=== PATIENT | female | born 1950 | race Native Hawaiian/Other Pacific Islander ===

== ENCOUNTER 2016-11-16 11:02 | Outpatient (CLI) | payer BC | END 2016-11-16 19:08 | disposition home or self-care (01) | LOC: RAD 11:02 | DX: M25.512 Pain in left shoulder (principal); M25.511 Pain in right shoulder ==

== ENCOUNTER 2017-02-07 13:13 | Outpatient (CLI) | payer BC | END 2017-02-07 19:28 | disposition home or self-care (01) | LOC: MAMMO 13:13 | DX: Z12.31 Encounter for screening mammogram for malignant neoplasm of breast (principal) | CPT/HCPCS: G0202-TC ==

== ENCOUNTER 2017-03-08 07:42 | Day surgery (SDC) | payer BC ==
[2017-03-08 08:26] LABS: PLATELET COUNT 325 K/uL (152-353)
[2017-03-08 10:55] LABS: POTASSIUM 3.4 mmol/L (3.6-5.2); SODIUM 141 mmol/L (136-145)
== END 2017-03-08 10:45 | disposition home or self-care (01) ==
LOC: OR 07:42
PROVIDERS: Student in an Organized Health Care Education/Training Program
PROC: 0DBK8ZZ Excision of Ascending Colon, Via Natural or Artificial Opening Endoscopic (ICD-10-PCS; principal; 2017-03-08)
DX: K63.5 Polyp of colon (principal); K57.30 Diverticulosis of large intestine without perforation or abscess without bleeding; Z12.11 Encounter for screening for malignant neoplasm of colon
CPT/HCPCS: 80053; 85027; 85610; 85730; J2001; J2250; J2704; J3010; J3490

== ENCOUNTER 2018-04-06 14:04 | Outpatient (CLI) | payer OTHER | END 2018-04-06 22:11 | disposition home or self-care (01) | LOC: MAMMO 14:04 | DX: Z12.31 Encounter for screening mammogram for malignant neoplasm of breast (principal) ==

== ENCOUNTER 2019-12-26 14:41 | Outpatient (CLI) | payer OTHER | END 2019-12-26 19:19 | disposition home or self-care (01) | LOC: MAMMO 14:41 | DX: Z12.31 Encounter for screening mammogram for malignant neoplasm of breast (principal); Z13.820 Encounter for screening for osteoporosis; N95.8 Other specified menopausal and perimenopausal disorders ==

== ENCOUNTER 2022-09-13 09:32 | Outpatient (CLI) | payer OTHER | END 2022-09-13 18:56 | disposition home or self-care (01) | LOC: MAMMO 09:32 | PROVIDERS: ATTEND Registered Nurse | DX: Z12.31 Encounter for screening mammogram for malignant neoplasm of breast (principal) ==

== ENCOUNTER 2023-01-21 10:44 | Outpatient (CLI) | payer OTHER | END 2023-01-21 19:06 | disposition home or self-care (01) | LOC: RAD 10:44 | PROVIDERS: ATTEND Physician Assistant | DX: M25.552 Pain in left hip (principal); M25.551 Pain in right hip ==